=== PATIENT | female | born 1965 | race Caucasian/White ===

== ENCOUNTER 2016-10-28 09:35 | Emergency (ER) | payer BC ==
[2016-10-28 10:16] VITALS: BP 145/83
[2016-10-28] MEDS ORDERED: Ondansetron ODT TAB* 4 MG PO ONE (10:41)
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
== END 2016-10-28 11:11 | disposition home or self-care (01) ==
LOC: UCCORT 09:35
DX: J06.9 Acute upper respiratory infection, unspecified (principal); R11.0 Nausea; R03.0 Elevated blood-pressure reading, without diagnosis of hypertension; Z88.1 Allergy status to other antibiotic agents; Z88.8 Allergy status to other drugs, medicaments and biological substances
CPT/HCPCS: 87502; 99212; G0463

== ENCOUNTER 2018-02-15 15:21 | Emergency (ER) | payer BC ==
[2018-02-15 15:41] VITALS: BP 132/90
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
== END 2018-02-15 16:14 | disposition home or self-care (01) ==
LOC: UCCORT 15:21
DX: T70.0XXA Otitic barotrauma, initial encounter (principal); X58.XXXA Exposure to other specified factors, initial encounter; H65.91 Unspecified nonsuppurative otitis media, right ear; Z88.8 Allergy status to other drugs, medicaments and biological substances; Z88.1 Allergy status to other antibiotic agents; Z91.040 Latex allergy status; Z82.49 Family history of ischemic heart disease and other diseases of the circulatory system
CPT/HCPCS: 99211; G0463

== ENCOUNTER 2018-02-24 10:28 | Emergency (ER) | payer BC ==
[2018-02-24 11:04] VITALS: BP 131/81
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
== END 2018-02-24 11:46 | disposition home or self-care (01) ==
LOC: UCCORT 10:28
DX: H60.91 Unspecified otitis externa, right ear (principal); R42 Dizziness and giddiness; Z88.1 Allergy status to other antibiotic agents; Z88.8 Allergy status to other drugs, medicaments and biological substances
CPT/HCPCS: 99212; G0463